=== PATIENT | male | born 1955 | race Caucasian/White ===

== ENCOUNTER → 2016-06-26 | Outpatient (CLI) | payer OTHER ==
--- NOTE | 2016-06-26 13:04 | ECHOS ---
DATE OF SERVICE: 06/26/2016 AGE: 60Y SEX: M HT: 70 WT: 111 lbs. Protocol Prince: X Others: Stress Echo Stage: 1 Dur. of Exercise: 3:00 *Heart Rate Blood Pressure *Rest: 100 Rest: 103/81 * *Max. Achieved: 121 Maximum BP: 137/55 85% PMHR: 137 100% PMHR: 161 *METS: 4.4 INDICATIONS: Chest pain. MEDICATIONS: Hydrocodone, QVAR, albuterol, montelukast, ipratropium. Mr. Cantu is a 60-year-old gentleman with history of COPD being evaluated for symptoms of shortness of breath and chest pain. Baseline EKG showed a sinus rhythm with normal SD interval and QRS duration. Blood pressure at rest is 103/81 with pulse rate 100. Patient was able to walk on the Prince protocol only for 3 minutes achieving a maximum heart rate of 121 with a blood pressure 137/55. The test was stopped because of shortness of breath and fatigue. EKGs did not reveal any acute changes. Baseline echo image is suboptimal. These were done with Def[employer]. Overall, there appears to be in normal LV function at rest. There appears to be augmentation of the wall motion and thickening in all the segments at this low work load. FINAL IMPRESSION: 1. Inconclusive stress test because patient did not achieve 85% of predicted heart rate. 2. There does not seem to be any ischemic changes on the stress echo at the level of exercise that patient had achieved; however, this is a suboptimal study or inconclusive study because of not adequate heart rate.
== END | disposition home or self-care (01) ==
LOC: RADNMMAIN 10:45
PROVIDERS: ATTEND Family Medicine
DX: R07.9 Chest pain, unspecified (principal)
CPT/HCPCS: 93017; C8928; Q9957; 93350